=== PATIENT | female | born 1955 | race Caucasian/White ===

== ENCOUNTER → 2019-12-11 | Outpatient (CLI) | payer OTHER ==
--- NOTE | 2019-12-13 07:07 | PE ---
EXAMINATION TYPE: PET CT fusion skull to thigh DATE OF EXAM: 12/11/2019 COMPARISON: NONE HISTORY: Colorectal cancer diagnosed October 2019 after intestine mass removed with known left adrenal mass and large retroperitoneal mass per patient. TECHNIQUE: Following the intravenous administration of 12.45 mCi of F-18 FDG, whole body images are performed from the skull base to the midthigh. Images are reviewed on the computer in the coronal, a xial, and sagittal planes. Reconstructed rotating images are created on independent workstation and reviewed on the computer. A noncontrast CT is performed in conjunction with the PET scan. SCAN: Subsequent Scan FINDINGS: SKULL BASE AND NECK: Bilateral hypermetabolic supraclavicular lymph nodes, for reference a supraclav icular lymph node measures 8 x 8 mm size image 51, max SUV is 3.49. For reference left supraclavicula r lymph node measures 9 x 9 mm axial image 52, max SUV 2.63. CHEST, MEDIASTINUM, AND HILAR REGION: Background moderate underlying emphysematous change. Abnormal l eft suprahilar mass difficult to accurately measure as there may be mediastinal invasion axial image 83, max SUV is 10.59 at this level. There is abnormal subcarinal mass contiguous with left hilar mass , max SUV 8.3 at this level. Abnormal right tracheobronchial lymph node measuring 2.0 x 1.2 cm size axial image 77, max SUV is 6.1 8. Abnormal right peritracheal lymph node measuring 1.5 x 1.4 cm axial image 70, max SUV is 6.18. ABDOMEN AND PELVIS: Abnormal 1.8 x 1.0 cm right adrenal mass, max SUV 5.69. Abnormal large or left adrenal mass measuring 2.2 x 1.6 cm axial image 121, max SUV 5.56. Abnormal left mid abdominal peritoneal soft tissue mass measuring 2.6 x 2.5 cm axial image 160, max S UV 7.91. Bowel sutures noted to the left of this. OSSEOUS STRUCTURES: Osseous metastatic disease. For reference right iliac hypermetabolic lesion axial image 171 Max SUV 5.63. For reference left acetabular lesion axial image 201 max SUV 5.09. For refer ence destructive L4 hypermetabolic lesion max SUV 11.57. For reference hypermetabolic T9 lesion max S UV 8.86. Hypermetabolic anterior lateral left rib lesion axial image 79 noted. Additional upper sacra l lesions. OTHER CT: Patient has little intra-abdominal fat. Uterus surgically absent. [id number] calcifie d plaque of the aorta extends into branch vessels. IMPRESSION: Diffuse metastatic disease as detailed above.
== END | disposition home or self-care (01) ==
LOC: RADPETMAIN 16:05
PROVIDERS: ATTEND Internal Medicine Hematology & Oncology
DX: C79.51 Secondary malignant neoplasm of bone (principal); C18.8 Malignant neoplasm of overlapping sites of colon
CPT/HCPCS: 78815; A9552